=== PATIENT | female | born 1985 | race Caucasian/White ===

== ENCOUNTER 2019-11-18 08:28 | Day surgery (SDC) ==
[~2019-11-18 08:28] MED LIST: LACTATED RINGERS 1,000 ML IV SCH
[2019-11-18] MEDS ORDERED: DIAZEPAM 5 MG TABLET PO ONE (08:41)
[2019-11-18] MEDS ORDERED: DIAZEPAM 5 MG TABLET ONE (09:36)
[2019-11-18] MEDS ORDERED: FAMOTIDINE 20 MG TABLET ONE (09:36)
[2019-11-18] MEDS: FAMOTIDINE 20 MG TABLET PO SCH ×2 (09:40→20:14)
[2019-11-18] MEDS ORDERED: GLYCOPYRROLATE 0.4 MG/2 ML VIAL IM ONE (11:22)
[2019-11-18] MEDS ORDERED: GLYCOPYRROLATE 0.4 MG/2 ML VIAL ONE (11:40)
[2019-11-18] MEDS ORDERED: LIDOCAINE 1%/EPI INJ 20 ML VIAL ONE (11:49)
[2019-11-18] MEDS ORDERED: CHLORHEXIDINE 0.12% ORAL RINSE 60 ML BOTTLE SWISH/SPIT ONE (11:53)
[2019-11-18] MEDS ORDERED: MORPHINE 4 MG/1 ML VIAL IV PRN (12:39)
[2019-11-18] MEDS ORDERED: KETOROLAC 30 MG/1 ML VIAL IM PRN (12:40)
[2019-11-18] MEDS ORDERED: ONDANSETRON 4 MG/2 ML VIAL IV PRN ×2 (12:40→16:24)
[2019-11-18] MEDS ORDERED: CLINDAMYCIN 600 MG/4 ML VIAL ONE (13:28)
[2019-11-18] MEDS ORDERED: KETAMINE 500 MG/10 ML VIAL ONE (15:46)
[2019-11-18] MEDS ORDERED: propofoL 200 MG/20 ML VIAL IV ONE (15:48)
[2019-11-18] MEDS ORDERED: MIDAZOLAM 2 MG/2 ML VIAL ONE (15:48)
[2019-11-18] MEDS ORDERED: LIDOCAINE 2% 5 ML VIAL ONE (15:48)
[2019-11-18] MEDS ORDERED: SEVOFLURANE 1 UNIT/15 MINUTE INH ONE (15:48)
[2019-11-18] MEDS ORDERED: SUCCINYLCHOLINE 200 MG/10 ML VIAL ONE (15:49)
[2019-11-18] MEDS ORDERED: METOCLOPRAMIDE 10 MG/2 ML VIAL ONE (15:49)
[2019-11-18] MEDS ORDERED: PHENYLEPHRINE 1 MG/10 ML SYRINGE IV ONE (15:49)
[2019-11-18] MEDS ORDERED: ROCURONIUM 100 MG/10 ML VIAL IV ONE (15:49)
[2019-11-18] MEDS ORDERED: LACTATED RINGERS 1,000 ML IV ONE (15:49)
[2019-11-18] MEDS ORDERED: ONDANSETRON 4 MG/2 ML VIAL ONE ×2 (15:49→16:24)
[2019-11-18] MEDS ORDERED: DEXAMETHASONE 4 MG/1 ML VIAL ONE (15:52)
[2019-11-18] MEDS ORDERED: HYDROmorphone 2 MG/1 ML VIAL ONE (16:24)
[2019-11-18] MEDS: HYDROmorphone 2 MG/1 ML VIAL IV PRN ×2 (16:26→16:32)
[2019-11-18] MEDS: CHLORHEXIDINE 0.12% ORAL RINSE 60 ML BOTTLE SWISH/SPIT SCH ×2 (18:06→20:14)
[2019-11-18] MEDS: CLINDAMYCIN INJ 600 MG in PREMIX 1 EACH IV SCH (18:07)
[2019-11-18] MEDS: oxyCODONE/ACETAMINOPHEN 5-325 MG TABLET PO PRN (18:38)
[2019-11-18] MEDS ORDERED: DEXAMETHASONE 10 MG/1 ML VIAL IV ONE (19:00)
[2019-11-18] MEDS ORDERED: traZODone 50 MG TABLET PO SCH (21:00)
[2019-11-18] MEDS ORDERED: NICOTINE 14 MG/24 HR PATCH TRANSDERM SCH (22:00)
[2019-11-19] MEDS ORDERED: DEXAMETHASONE 4 MG/1 ML VIAL IV ONE (01:00)
[2019-11-19] MEDS: CLINDAMYCIN INJ 600 MG in PREMIX 1 EACH IV SCH ×2 (02:19→10:02)
[2019-11-19] MEDS: oxyCODONE/ACETAMINOPHEN 5-325 MG TABLET PO PRN ×3 (03:32→14:07)
[2019-11-19] MEDS ORDERED: DEXAMETHASONE 4 MG/1 ML VIAL IM ONE (07:00)
[2019-11-19] MEDS: CHLORHEXIDINE 0.12% ORAL RINSE 60 ML BOTTLE SWISH/SPIT SCH (10:00)
[2019-11-19] MEDS: FAMOTIDINE 20 MG TABLET PO SCH (10:01)
[2019-11-19 13:14] VITALS: BP 128/75
== END 2019-11-19 15:00 | disposition home or self-care (01) ==
LOC: N.OR 08:28 → N.SDSINP 08:29 → N.3E 08:44 → N.OR 11-19 15:00
PROVIDERS: ATTEND Dentist Oral and Maxillofacial Surgery